=== PATIENT | female | born 1995 | race Caucasian/White ===

== ENCOUNTER → 2018-05-17 | Outpatient (REF) | payer OTHER | LOC: M LAB REF 16:38 | DX: N39.0 Urinary tract infection, site not specified (principal) ==

== ENCOUNTER 2018-05-18 20:48 | Emergency (ER) | payer BC, OTHER ==
[2018-05-18 22:46] LABS: BASO % 0.4 % (0.0-1.0); EOS # 0.1 10^3/uL (0.0-0.50); EOS % 1.7 % (0.0-3.0); HEMATOCRIT 44.3 % (36.0-47.0); HEMOGLOBIN 14.2 g/dl (12.0-15.5); IMMATURE GRANULOCYTE % 0.3 % (0-3.0); LYMPH # 3.4 10^3/uL (1.5-6.5); LYMPH % 42.9 % (24.0-44.0); MEAN CORPUSCULAR HEMOGLOBIN 28.5 pg (27.0-33.0); MEAN CORPUSCULAR HGB CONC 32.1 g/dl (32.0-36.5); MEAN CORPUSCULAR VOLUME 88.8 fl (80.0-96.0); MONO # 0.6 10^3/uL (0.0-0.8); MONO % 7.1 % (0.0-5.0); NEUTROPHILS # 3.7 10^3/uL (1.8-7.7); NEUTROPHILS % 47.6 % (36.0-66.0); PLATELET COUNT, AUTOMATED 271 10^3/uL (150-450); RED BLOOD COUNT 4.99 10^6/uL (4.00-5.40); RED CELL DISTRIBUTION WIDTH 13.1 % (11.5-14.5); WHITE BLOOD COUNT 7.8 10^3/uL (4.0-10.0)
[2018-05-18 22:54] LABS: KETONE, URINE AUTO RFX TRACE mg/dL (NEGATIVE); MUCUS, URINE RFX SMALL (NEGATIVE); NITRITE, URINE AUTO RFX NEGATIVE (NEGATIVE); RBC, URINE AUTO RFX 2 /HPF (0-3); SPECIFIC GRAVITY UR AUTO RFX 1.019 (1.002-1.035); SQUAM EPITHELIAL CELL UR AURFX 5 /HPF (0-6); WBC, URINE AUTO RFX 8 /HPF (0-3)
[2018-05-18 22:55] LABS: CONTROL LINE UCG INT CTR LINE PRESENT; LEUKOCYTE ESTERASE UR AUTO RFX TRACE (NEGATIVE); URINE PREG TEST NEGATIVE (NEGATIVE)
[2018-05-18 23:06] LABS: ALBUMIN 4.2 GM/DL (3.2-5.2); ALBUMIN/GLOBULIN RATIO 1.24 (1.00-1.93); ALKALINE PHOSPHATASE 35 U/L (45-117); ALT/SGPT 21 U/L (12-78); ANION GAP 4 MEQ/L (8-16); AST/SGOT 13 U/L (7-37); BILIRUBIN,DIRECT 0.1 MG/DL (0.0-0.2); BILIRUBIN,TOTAL 0.3 MG/DL (0.2-1.0); BLOOD UREA NITROGEN 8 MG/DL (7-18); CALCIUM LEVEL 9.1 MG/DL (8.5-10.1); CARBON DIOXIDE LEVEL 31 MEQ/L (21-32); CHLORIDE LEVEL 105 MEQ/L (98-107); CREATININE FOR GFR 0.62 MG/DL (0.55-1.30); GLOMERULAR FILTRATION RATE > 60.0 (>60); GLUCOSE, FASTING 87 MG/DL (70-100); LIPASE 116 U/L (73-393); POTASSIUM SERUM 4.3 MEQ/L (3.5-5.1); SODIUM LEVEL 140 MEQ/L (136-145); TOTAL PROTEIN 7.6 GM/DL (6.4-8.2)
[2018-05-18] MEDS: NS 500 ML IV (23:30)
[2018-05-18] MEDS ORDERED: ISOVUE-370 76% 100ML VIAL (Q9967) As Ordered (23:44)
[2018-05-18] MEDS: ONDANSETRON 4MG/2ML VIAL (J2405) IV (23:52)
== END 2018-05-19 01:26 | disposition home or self-care (01) ==
LOC: M ED 05-19 01:26
DX: N39.0 Urinary tract infection, site not specified (principal); R10.9 Unspecified abdominal pain; R11.0 Nausea
CPT/HCPCS: J2405

== ENCOUNTER → 2018-05-18 | Outpatient (REF) | payer OTHER ==
[2018-05-19 11:02] LABS: BACTERIA, URINE AUTO 1+ (NEGATIVE); MUCUS, URINE SMALL (NEGATIVE); RBC, URINE AUTO 1 /HPF (0-3); SQUAMOUS EPITHELIAL CELL UR AU 6 /HPF (0-6); WBC, URINE AUTO 7 /HPF (0-3)
[2018-05-19 12:17] LABS: CHLAMYDIA DNA AMPLIFICATION NEGATIVE (NEGATIVE); GC DNA AMPLIFICATION NEGATIVE (NEGATIVE)
== END ==
LOC: M WUC 10:01
DX: R10.813 Right lower quadrant abdominal tenderness (principal)

== ENCOUNTER → 2018-08-29 | Outpatient (REF) | payer OTHER ==
[2018-08-29 14:15] LABS: AMORPHOUS SEDIMENT SMALL (NEGATIVE); APPEARANCE, URINE CLOUDY (CLEAR); BACTERIA, URINE AUTO 2+ (NEGATIVE); BILIRUBIN, URINE AUTO NEGATIVE (NEGATIVE); BLOOD, URINE BLOOD 3+ (NEGATIVE); CALCIUM OXALATE CRYSTALS LARGE; COLOR, URINE AMBER (YELLOW); GLUCOSE, URINE (UA) AUTO NEGATIVE (NEGATIVE); KETONE, URINE AUTO NEGATIVE (NEGATIVE); LEUKOCYTE ESTERASE, URINE AUTO 3+ (NEGATIVE); MUCUS, URINE LARGE (NEGATIVE); NITRITE, URINE AUTO NEGATIVE (NEGATIVE); PROTEIN, URINE AUTO 2+ mg/dL (NEGATIVE); RBC, URINE AUTO TNTC /HPF (0-3); SPECIFIC GRAVITY URINE AUTO 1.026 (1.002-1.035); SQUAMOUS EPITHELIAL CELL UR AU 28 /HPF (0-6); UROBILINOGEN, URINE AUTO 0.2 mg/dL (0.0-2.0); WBC, URINE AUTO TNTC /HPF (0-3)
== END ==
LOC: M LAB REF 13:40
DX: N39.0 Urinary tract infection, site not specified (principal)
CPT/HCPCS: 81001

== ENCOUNTER → 2018-09-28 | Outpatient (REF) | payer OTHER ==
[~2018-09-28] MED LIST: ZOFR4TAB14 PO
== END ==
LOC: M WUC 10:24
PROVIDERS: ATTEND Physician Assistant
DX: N39.0 Urinary tract infection, site not specified (principal)

== ENCOUNTER → 2019-04-19 | Outpatient (REF) | payer OTHER | LOC: M LAB REF 16:33 | PROVIDERS: ATTEND Physician Assistant | DX: N39.0 Urinary tract infection, site not specified (principal) ==

== ENCOUNTER → 2019-05-16 | Outpatient (REF) | payer OTHER | LOC: M LAB REF 09:57 | PROVIDERS: ATTEND Nurse Practitioner Family | DX: R30.0 Dysuria (principal) ==

== ENCOUNTER → 2019-10-02 | Outpatient (REF) | payer OTHER | LOC: M LAB REF 10:24 | PROVIDERS: ATTEND Physician Assistant | DX: R30.0 Dysuria (principal) ==

== ENCOUNTER → 2019-10-03 | Outpatient (REF) | payer OTHER ==
[2019-10-03 13:16] LABS: APPEARANCE, URINE CLOUDY (CLEAR); BACTERIA, URINE AUTO 1+ (NEGATIVE); BILIRUBIN, URINE AUTO NEGATIVE (NEGATIVE); BLOOD, URINE BLOOD 3+ (NEGATIVE); COLOR, URINE RED (YELLOW); GLUCOSE, URINE (UA) AUTO NEGATIVE (NEGATIVE); KETONE, URINE AUTO NEGATIVE (NEGATIVE); LEUKOCYTE ESTERASE, URINE AUTO 3+ (NEGATIVE); NITRITE, URINE AUTO NEGATIVE (NEGATIVE); PROTEIN, URINE AUTO 1+ mg/dL (NEGATIVE); RBC, URINE AUTO 49 /HPF (0-3); SPECIFIC GRAVITY URINE AUTO 1.003 (1.002-1.035); SQUAMOUS EPITHELIAL CELL UR AU 6 /HPF (0-6); UROBILINOGEN, URINE AUTO 0.2 mg/dL (0.0-2.0); WBC, URINE AUTO TNTC /HPF (0-3)
== END ==
LOC: M LAB REF 11:00
PROVIDERS: ATTEND Physician Assistant
DX: N39.0 Urinary tract infection, site not specified (principal)

== ENCOUNTER → 2019-10-19 | Outpatient (REF) | payer OTHER ==
[2019-10-19 14:30] LABS: APPEARANCE, URINE HAZY (CLEAR); BACTERIA, URINE AUTO 1+ (NEGATIVE); BILIRUBIN, URINE AUTO NEGATIVE (NEGATIVE); BLOOD, URINE BLOOD NEGATIVE (NEGATIVE); COLOR, URINE YELLOW (YELLOW); GLUCOSE, URINE (UA) AUTO NEGATIVE (NEGATIVE); KETONE, URINE AUTO NEGATIVE (NEGATIVE); LEUKOCYTE ESTERASE, URINE AUTO NEGATIVE (NEGATIVE); MUCUS, URINE SMALL (NEGATIVE); NITRITE, URINE AUTO NEGATIVE (NEGATIVE); PROTEIN, URINE AUTO NEGATIVE (NEGATIVE); RBC, URINE AUTO 1 /HPF (0-3); SPECIFIC GRAVITY URINE AUTO 1.012 (1.002-1.035); SQUAMOUS EPITHELIAL CELL UR AU 0 /HPF (0-6); UROBILINOGEN, URINE AUTO 0.2 mg/dL (0.0-2.0); WBC, URINE AUTO 1 /HPF (0-3)
== END ==
LOC: M SMT 13:26
PROVIDERS: ATTEND Nurse Practitioner Women's Health
DX: R30.0 Dysuria (principal)

== ENCOUNTER → 2019-10-26 | Outpatient (CLI) | payer BC, OTHER ==
--- NOTE | 2019-10-26 11:51 | REP ---
Renal ultrasound for frequent urinary tract infections: The right kidney measures 11.6 x 5: By 4.1 cm. The left kidney measures 11.0 x 4.9 x 5.2 cm. The kidneys are normal size. Renal cortical echogenicity is normal bilaterally. There is no hydronephrosis on the right on the left. There are no renal calculi. There are no solid or cystic renal masses. Impression: Negative renal ultrasound. Electronically Signed by Tang Schmitt MD 10/26/2019 11:43 A
--- NOTE | 2019-10-26 11:53 | REP ---
Bladder ultrasound for recurrent urinary tract infections: The distended bladder pre void bladder volume is 465 ml. The postvoid bladder volume is 21 ml. The postvoid residual is 4%. There are no bladder wall polyps or masses. Electronically Signed by Tang Schmitt MD 10/26/2019 11:44 A
== END ==
LOC: M RAD 10:46
PROVIDERS: ATTEND Nurse Practitioner Women's Health
DX: Z87.440 Personal history of urinary (tract) infections (principal)

== ENCOUNTER → 2020-01-25 | Outpatient (REF) | payer OTHER ==
[2020-01-25 17:26] LABS: APPEARANCE, URINE HAZY (CLEAR); BACTERIA, URINE AUTO 1+ (NEGATIVE); BILIRUBIN, URINE AUTO NEGATIVE (NEGATIVE); BLOOD, URINE BLOOD 3+ (NEGATIVE); COLOR, URINE STRAW (YELLOW); GLUCOSE, URINE (UA) AUTO NEGATIVE (NEGATIVE); KETONE, URINE AUTO NEGATIVE (NEGATIVE); LEUKOCYTE ESTERASE, URINE AUTO 3+ (NEGATIVE); MUCUS, URINE SMALL (NEGATIVE); NITRITE, URINE AUTO NEGATIVE (NEGATIVE); PROTEIN, URINE AUTO NEGATIVE (NEGATIVE); RBC, URINE AUTO 2 /HPF (0-3); SPECIFIC GRAVITY URINE AUTO 1.002 (1.002-1.035); SQUAMOUS EPITHELIAL CELL UR AU 3 /HPF (0-6); UROBILINOGEN, URINE AUTO 0.2 mg/dL (0.0-2.0); WBC, URINE AUTO 43 /HPF (0-3)
== END ==
LOC: M SMT 16:31
PROVIDERS: ATTEND Nurse Practitioner Women's Health
DX: R30.0 Dysuria (principal)

== ENCOUNTER → 2020-09-12 | Outpatient (CLI) | payer BC ==
[2020-09-12 12:12] LABS: BASO % 0.7 % (0.0-1.0); EOS # 0.2 10^3/uL (0.0-0.5); EOS % 3.6 % (0.0-3.0); HEMOGLOBIN 13.5 g/dl (12.0-15.5); LYMPH # 2.1 10^3/uL (1.5-5.0); LYMPH % 47.1 % (24.0-44.0); MEAN CORPUSCULAR HEMOGLOBIN 28.3 pg (27.0-33.0); MEAN CORPUSCULAR HGB CONC 32.1 g/dl (32.0-36.5); MEAN CORPUSCULAR VOLUME 88.1 fl (80.0-96.0); MONO # 0.3 10^3/uL (0.0-0.8); MONO % 5.9 % (0.0-5.0); NEUTROPHILS # 1.9 10^3/uL (1.5-8.5); NEUTROPHILS % 42.7 % (36.0-66.0); PLATELET COUNT, AUTOMATED 283 10^3/uL (150-450); RED BLOOD COUNT 4.77 10^6/uL (4.00-5.40); WHITE BLOOD COUNT 4.4 10^3/uL (4.0-10.0)
[2020-09-12 12:46] LABS: ALBUMIN 4.3 GM/DL (3.2-5.2); ALT/SGPT 20 U/L (12-78); BILIRUBIN,TOTAL 0.5 MG/DL (0.2-1.0); BLOOD UREA NITROGEN 8 MG/DL (7-18); CALCIUM LEVEL 8.8 MG/DL (8.5-10.1); CARBON DIOXIDE LEVEL 29 MEQ/L (21-32); CHLORIDE LEVEL 105 MEQ/L (98-107); CHOLESTEROL LEVEL 186 MG/DL (<200); CHOLESTEROL RISK RATIO 2.325 (<5); CREATININE FOR GFR 0.67 MG/DL (0.55-1.30); GLOMERULAR FILTRATION RATE > 60.0 (>60); GLUCOSE, FASTING 92 MG/DL (70-100); HDL CHOLESTEROL 80 MG/DL (>40); LDL CHOLESTEROL 91 MG/DL (<100); NON-HDL-C 106 MG/DL; POTASSIUM SERUM 3.7 MEQ/L (3.5-5.1); SODIUM LEVEL 139 MEQ/L (136-145); TOTAL PROTEIN 7.2 GM/DL (6.4-8.2); TRIGLYCERIDES LEVEL 75 MG/DL (<150)
[2020-09-12 12:51] LABS: TOTAL 25(OH) VITAMIN D 23.1 NG/ML (30.0-100.0)
== END ==
LOC: M WUC 09:21
PROVIDERS: ATTEND Physician Assistant
DX: Z00.00 Encounter for general adult medical examination without abnormal findings (principal); Z86.2 Personal history of diseases of the blood and blood-forming organs and certain disorders involving the immune mechanism; Z13.220 Encounter for screening for lipoid disorders; Z13.29 Encounter for screening for other suspected endocrine disorder

== ENCOUNTER → 2020-09-29 | Outpatient (REF) | payer BC | LOC: M SFHCPLAZ 13:09 | PROVIDERS: ATTEND Physician Assistant | DX: R35.0 Frequency of micturition (principal) ==

== ENCOUNTER 2021-05-13 16:44 | Emergency (ER) | payer BC ==
[~2021-05-13] VITALS: Ht 160 cm; Wt 63.6 kg
[2021-05-13] MEDS ORDERED: GI COCKTAIL 50ML BTL(HYOSCYAMINE/MAALOX/LIDOCAINE VISCOUS)(1:3:1) PO ONE (21:00)
[2021-05-13 21:31] LABS: BASO % 0.4 % (0.0-1.0); EOS % 0.8 % (0.0-3.0); HEMATOCRIT 41.4 % (36.0-47.0); HEMOGLOBIN 13.1 g/dl (12.0-15.5); LYMPH # 1.2 10^3/uL (1.5-5.0); LYMPH % 22.8 % (24.0-44.0); MEAN CORPUSCULAR HEMOGLOBIN 27.5 pg (27.0-33.0); MEAN CORPUSCULAR HGB CONC 31.6 g/dl (32.0-36.5); MONO # 0.3 10^3/uL (0.0-0.8); MONO % 6.7 % (2.0-8.0); NEUTROPHILS # 3.5 10^3/uL (1.5-8.5); NEUTROPHILS % 69.1 % (36.0-66.0); PLATELET COUNT, AUTOMATED 250 10^3/uL (150-450); RED BLOOD COUNT 4.76 10^6/uL (4.00-5.40); WHITE BLOOD COUNT 5.1 10^3/uL (4.0-10.0)
[2021-05-13 21:59] LABS: ERYTHROCYTE SEDIMENTATION RATE 4 mm/hr (0-20)
[2021-05-13 22:07] LABS: ALBUMIN 4.2 GM/DL (3.2-5.2); ALT/SGPT 25 U/L (12-78); BILIRUBIN,DIRECT 0.1 MG/DL (0.0-0.2); BILIRUBIN,TOTAL 0.4 MG/DL (0.2-1.0); BLOOD UREA NITROGEN 8 MG/DL (7-18); C REACTIVE PROTEIN QUANTITATIV 0.46 MG/DL (0.00-0.30); CALCIUM LEVEL 8.9 MG/DL (8.5-10.1); CARBON DIOXIDE LEVEL 28 MEQ/L (21-32); CHLORIDE LEVEL 105 MEQ/L (98-107); CK-MB VALUE MASS < 1.0 NG/ML (<3.6); CPK CREATINE PHOSPHOKINASE 106 U/L (26-192); CREATININE FOR GFR 0.67 MG/DL (0.55-1.30); FREE T4 0.92 NG/DL (0.76-1.46); GLOMERULAR FILTRATION RATE > 60.0 (>60); GLUCOSE, FASTING 87 MG/DL (70-100); LIPASE 104 U/L (73-393); MB/CK RELATIVE INDEX 0.94 (< OR =4); NT-PRO BNP 74 PG/ML (<125); POTASSIUM SERUM 4.1 MEQ/L (3.5-5.1); SODIUM LEVEL 140 MEQ/L (136-145); TOTAL PROTEIN 7.1 GM/DL (6.4-8.2); TROPONIN I < 0.02 NG/ML (< 0.10)
--- NOTE | 2021-05-13 22:51 | REPVR ---
PROCEDURE INFORMATION: Exam: XR Chest Exam date and time: 05/13/2021 10:20 PM Age: 26 years old Clinical indication: Other: Chest pain TECHNIQUE: Imaging protocol: XR of the chest. Views: 1 view. COMPARISON: CT ABD/PEL W/IV CONTRAST ONLY 05/18/2018 11:54 PM FINDINGS: Lungs: Unremarkable. No consolidation. Pleural spaces: Unremarkable. No pleural effusion. No pneumothorax. Heart/Mediastinum: Unremarkable. No cardiomegaly. Bones/joints: Unremarkable. IMPRESSION: Negative chest. Electronically signed by: Elton Guzman On 05/13/2021 22:50:58 PM
[2021-05-13 23:44] VITALS: BP 134/67
--- NOTE | 2021-05-15 06:36 | ECGEPIP ---
[facility] - ED Test Date: 2021-05-13 Pat Name: MICHAEL ACEVEDO Department: Room: - Gender: Female [employer] Electrical Engineer: EMILY : [id number] Requested By: BELGICA South PA-C Order Number: [id number] Reading MD: Abimbola Goldsmith Measurements Intervals [place] Rate: 81 P: 17 DE: 108 QRS: 66 QRSD: 76 T: 58 QT: 384 QTc: 446 Interpretive Statements Sinus rhythm with sinus arrhythmia with short DE Nonspecific ST T wave changes No prior ECG for comparison Electronically Signed on 05-15-2021 6:36:03 EDT by Abimbola Goldsmith
== END 2021-05-13 23:47 | disposition home or self-care (01) ==
LOC: M ED 16:44
DX: R07.9 Chest pain, unspecified (principal); T50.B95A Adverse effect of other viral vaccines, initial encounter; J45.990 Exercise induced bronchospasm; Z88.2 Allergy status to sulfonamides; Z91.040 Latex allergy status

== ENCOUNTER → 2021-06-05 | Outpatient (CLI) | payer BC ==
--- NOTE | 2021-06-05 13:46 | REP ---
INDICATION: LOCALIZED SWELLING MASS AND LUMP NECK. COMPARISON: None. TECHNIQUE: Real-time sonographic evaluation of the bilateral neck soft tissues performed, for bilateral palpable lumps. FINDINGS: In the right neck soft tissues there is a nonenlarged lymph node which measures 9 x 3 x 8 mm. In the lateral left neck soft tissues there is a nonenlarged lymph node which measures 10 x 5 x 9 mm. IMPRESSION: A nonenlarged lymph node is seen in the right neck soft tissues and another in the left neck soft tissues. <Electronically signed by Tang Kaur > 06/05/21 [id number]
== END ==
LOC: M WHC 09:36
PROVIDERS: ATTEND Physician Assistant
DX: R22.1 Localized swelling, mass and lump, neck (principal)

== ENCOUNTER → 2022-12-24 | Outpatient (REF) | payer BC | LOC: M SFHCPLAZ 10:01 | PROVIDERS: ATTEND Advanced Practice Midwife | DX: Z12.4 Encounter for screening for malignant neoplasm of cervix (principal) ==

== ENCOUNTER → 2023-05-06 | Outpatient (CLI) | payer BC ==
[2023-05-06 14:11] LABS: HEMATOCRIT 41.9 % (36.0-47.0); HEMOGLOBIN 13.2 g/dl (12.0-15.5); MEAN CORPUSCULAR HEMOGLOBIN 28.1 pg (27.0-33.0); MEAN CORPUSCULAR HGB CONC 31.5 g/dl (32.0-36.5); MEAN CORPUSCULAR VOLUME 89.1 fl (80.0-96.0); PLATELET COUNT, AUTOMATED 225 10^3/uL (150-450); WHITE BLOOD COUNT 6.8 10^3/uL (4.0-10.0)
[2023-05-06 14:57] LABS: HIV 1&2 SCREEN NEGATIVE (NEGATIVE)
[2023-05-06 15:05] LABS: HEPATITIS C VIRUS ABY INDEX 0.13 INDEX (<0.8)
[2023-05-07 12:44] LABS: GC DNA AMPLIFICATION NEGATIVE (NEGATIVE)
== END ==
LOC: M PLALAB 10:37
PROVIDERS: ATTEND Obstetrics & Gynecology
DX: O30.001 Twin pregnancy, unspecified number of placenta and unspecified number of amniotic sacs, first trimester (principal)

== ENCOUNTER → 2023-05-13 | Outpatient (CLI) | payer BC, MEDICAID | LOC: M WHC 10:19 | PROVIDERS: ATTEND Obstetrics & Gynecology | DX: O30.001 Twin pregnancy, unspecified number of placenta and unspecified number of amniotic sacs, first trimester (principal) ==

== ENCOUNTER → 2023-07-01 | Outpatient (CLI) | payer BC, MEDICAID | LOC: M WHC 09:27 | PROVIDERS: ATTEND Obstetrics & Gynecology | DX: O30.032 Twin pregnancy, monochorionic/diamniotic, second trimester (principal); Z3A.19 19 weeks gestation of pregnancy ==

== ENCOUNTER → 2023-07-21 | Outpatient (CLI) | payer BC, MEDICAID | LOC: M WHC 14:02 | PROVIDERS: ATTEND Specialist | DX: O30.032 Twin pregnancy, monochorionic/diamniotic, second trimester (principal); Z3A.22 22 weeks gestation of pregnancy ==

== ENCOUNTER → 2023-08-08 | Outpatient (CLI) | payer BC, MEDICAID ==
[2023-08-08 13:48] LABS: HEMATOCRIT 31.6 % (36.0-47.0); HEMOGLOBIN 9.8 g/dl (12.0-15.5); MEAN CORPUSCULAR HEMOGLOBIN 26.7 pg (27.0-33.0); MEAN CORPUSCULAR VOLUME 86.1 fl (80.0-96.0); PLATELET COUNT, AUTOMATED 328 10^3/uL (150-450); RED BLOOD COUNT 3.67 10^6/uL (4.00-5.40); WHITE BLOOD COUNT 10.7 10^3/uL (4.0-10.0)
[2023-08-08 15:26] LABS: CHLAMYDIA DNA AMPLIFICATION NEGATIVE (NEGATIVE); GC DNA AMPLIFICATION NEGATIVE (NEGATIVE)
== END ==
LOC: M PLALAB 10:47
PROVIDERS: ATTEND Obstetrics & Gynecology
DX: O30.032 Twin pregnancy, monochorionic/diamniotic, second trimester (principal)

== ENCOUNTER → 2023-08-10 | Outpatient (CLI) | payer BC, MEDICAID | LOC: M WHC 13:42 | PROVIDERS: ATTEND Obstetrics & Gynecology | DX: O30.032 Twin pregnancy, monochorionic/diamniotic, second trimester (principal) ==

== ENCOUNTER 2023-08-29 14:34 | Outpatient (CLI) | payer BC, MEDICAID ==
[~2023-08-29] VITALS: Ht 160 cm; Wt 83.4 kg
[2023-08-29] MEDS ORDERED: IRON27TA2 PO (14:47)
[2023-08-29] MEDS ORDERED: PRENTAB9 PO (14:47)
[2023-08-29] MEDS ORDERED: FOLI800C PO (14:47)
[2023-08-29 14:49] VITALS: BP 135/75
[2023-08-29] MEDS ORDERED: HOME MED LIST COMPLETE! XX SCH (14:50)
[2023-08-29 16:54] VITALS: BP 129/76
[2023-08-29 16:54] LABS: HEMATOCRIT 32.3 % (36.0-47.0); HEMOGLOBIN 10.1 g/dl (12.0-15.5); MEAN CORPUSCULAR HEMOGLOBIN 26.4 pg (27.0-33.0); MEAN CORPUSCULAR HGB CONC 31.3 g/dl (32.0-36.5); MEAN CORPUSCULAR VOLUME 84.6 fl (80.0-96.0); PLATELET COUNT, AUTOMATED 309 10^3/uL (150-450); RED BLOOD COUNT 3.82 10^6/uL (4.00-5.40); WHITE BLOOD COUNT 9.7 10^3/uL (4.0-10.0)
[2023-08-29] MEDS ORDERED: DOCU-153 PO (17:14)
[2023-08-29] MEDS ORDERED: FERR324T21 PO (17:14)
[2023-08-29 18:26] LABS: ALBUMIN 2.6 G/DL (3.2-5.2); ALKALINE PHOSPHATASE 97 U/L (46-116); ALT/SGPT 14 U/L (7.0-40); AST/SGOT 15 U/L (<34); BILIRUBIN,TOTAL 0.2 MG/DL (0.3-1.2); BLOOD UREA NITROGEN 6 MG/DL (9-23); CARBON DIOXIDE LEVEL 23 MMOL/L (20-31); CHLORIDE LEVEL 107 MMOL/L (98-107); CREATININE FOR GFR 0.36 MG/DL (0.55-1.30); GLOMERULAR FILTRATION RATE > 60.0 (>60); GLUCOSE, FASTING 107 MG/DL (60-100); POTASSIUM SERUM 4.2 MMOL/L (3.5-5.1); SODIUM LEVEL 138 MMOL/L (136-145); TOTAL PROTEIN 5.8 G/DL (5.7-8.2)
== END 2023-08-29 17:45 | disposition home or self-care (01) ==
LOC: M LDO 14:34
PROVIDERS: ATTEND Advanced Practice Midwife
DX: O26.892 Other specified pregnancy related conditions, second trimester (principal); R42 Dizziness and giddiness; R51.9 Headache, unspecified; O30.032 Twin pregnancy, monochorionic/diamniotic, second trimester; O36.5921 Maternal care for other known or suspected poor fetal growth, second trimester, fetus 1; O99.012 Anemia complicating pregnancy, second trimester; D50.9 Iron deficiency anemia, unspecified; Z3A.27 27 weeks gestation of pregnancy
CPT/HCPCS: 36415; 59025; 76812; 76816; 76819; 76820; 76821; 80053; 85027; G0463

== ENCOUNTER 2023-09-01 09:39 | Outpatient (CLI) | payer BC, MEDICAID ==
[~2023-09-01] VITALS: Ht 162.6 cm; Wt 82.0 kg
[~2023-09-01 09:39] MED LIST changes: +DOCU-153 PO; +FERR324T21 PO; +FOLI800C PO; +IRON27TA2 PO; +PRENTAB9 PO
[2023-09-01] MEDS ORDERED: IRON SUCROSE 500 MG in NS 250 ML OVER 4 HRS IV ONE (10:00)
[2023-09-01 10:06] VITALS: BP 126/78; O2SAT 99
[2023-09-01 11:30] VITALS: BP 136/77; O2SAT 98
[2023-09-01 13:00] VITALS: BP 136/82; O2SAT 97
[2023-09-01 14:30] VITALS: BP 121/66; O2SAT 97
== END 2023-09-01 15:00 | disposition home or self-care (01) ==
LOC: M INFU 09:39
PROVIDERS: ATTEND Specialist
DX: D64.9 Anemia, unspecified (principal); Z88.2 Allergy status to sulfonamides
CPT/HCPCS: 96365; 96366; J1756

== ENCOUNTER → 2023-09-14 | Outpatient (CLI) | payer BC, MEDICAID | LOC: M WHC 07:24 | PROVIDERS: ATTEND Obstetrics & Gynecology | DX: O30.033 Twin pregnancy, monochorionic/diamniotic, third trimester (principal) ==

== ENCOUNTER 2023-09-23 16:55 | Outpatient (CLI) | payer BC, MEDICAID ==
[~2023-09-23] VITALS: Ht 160 cm; Wt 87.2 kg
[2023-09-23 17:31] VITALS: BP 142/76
[2023-09-23] MEDS ORDERED: IRON325T2 PO (17:34)
[2023-09-23] MEDS ORDERED: HOME MED LIST COMPLETE! XX SCH (17:35)
[2023-09-23 17:50] VITALS: BP 139/75
[2023-09-23 20:33] VITALS: BP 124/73
== END 2023-09-23 21:20 | disposition home or self-care (01) ==
LOC: M LDO 16:55
PROVIDERS: ATTEND Advanced Practice Midwife
DX: O30.033 Twin pregnancy, monochorionic/diamniotic, third trimester (principal); Z04.1 Encounter for examination and observation following transport accident; Y92.9 Unspecified place or not applicable; Y93.9 Activity, unspecified; Y99.9 Unspecified external cause status; Z3A.31 31 weeks gestation of pregnancy; Z88.2 Allergy status to sulfonamides; Z91.040 Latex allergy status
CPT/HCPCS: 59025; 76815; 76819; 76820; G0463

== ENCOUNTER → 2023-10-05 | Outpatient (CLI) | payer BC, MEDICAID ==
[~2023-10-05] MED LIST changes: +IRON325T2 PO
== END ==
LOC: M WHC 09:31
PROVIDERS: ATTEND Obstetrics & Gynecology
DX: O30.033 Twin pregnancy, monochorionic/diamniotic, third trimester (principal)

== ENCOUNTER → 2023-10-12 | Outpatient (CLI) | payer BC, MEDICAID | LOC: M WHC 09:34 | PROVIDERS: ATTEND Advanced Practice Midwife | DX: O30.033 Twin pregnancy, monochorionic/diamniotic, third trimester (principal); O32.1XX1 Maternal care for breech presentation, fetus 1; O32.1XX2 Maternal care for breech presentation, fetus 2 ==

== ENCOUNTER → 2023-10-12 | Outpatient (CLI) | payer BC, MEDICAID | LOC: M WHC 09:33 | PROVIDERS: ATTEND Obstetrics & Gynecology | DX: O30.033 Twin pregnancy, monochorionic/diamniotic, third trimester (principal); Z3A.32 32 weeks gestation of pregnancy; O32.1XX1 Maternal care for breech presentation, fetus 1; O32.2XX0 Maternal care for transverse and oblique lie, not applicable or unspecified ==

== ENCOUNTER → 2023-10-19 | Outpatient (CLI) | payer BC, MEDICAID | LOC: M WHC 09:46 | PROVIDERS: ATTEND Obstetrics & Gynecology | DX: O30.033 Twin pregnancy, monochorionic/diamniotic, third trimester (principal) ==

== ENCOUNTER → 2023-10-26 | Outpatient (REF) | payer BC, MEDICAID | LOC: M SFHCWAGY 17:04 | PROVIDERS: ATTEND Obstetrics & Gynecology | DX: O30.033 Twin pregnancy, monochorionic/diamniotic, third trimester (principal) ==

== ENCOUNTER → 2023-10-27 | Outpatient (CLI) | payer BC, MEDICAID | LOC: M WHC 08:33 | PROVIDERS: ATTEND Obstetrics & Gynecology | DX: O30.039 Twin pregnancy, monochorionic/diamniotic, unspecified trimester (principal) ==

== ENCOUNTER 2023-11-04 05:42 | Inpatient (IN) | payer BC, MEDICAID ==
[2023-11-04] VITALS (12 sets, daily range): BP systolic 112–141; BP diastolic 55–83; TEMP 97.8; O2SAT 97–100
[~2023-11-04] VITALS: Ht 160 cm; Wt 90.5 kg
[~2023-11-04 05:42] MED LIST changes: -DOCU-153 PO; +STOO100C30 PO
[2023-11-04] MEDS ORDERED: HOME MED LIST COMPLETE! XX SCH (06:15)
[2023-11-04] MEDS: LACTATED RINGER'S 1000 ML IV STA (06:29)
[2023-11-04 06:44] LABS: HEMATOCRIT 39.6 % (36.0-47.0); HEMOGLOBIN 12.7 g/dl (12.0-15.5); MEAN CORPUSCULAR HEMOGLOBIN 26.6 pg (27.0-33.0); MEAN CORPUSCULAR HGB CONC 32.1 g/dl (32.0-36.5); PLATELET COUNT, AUTOMATED 248 10^3/uL (150-450); RED BLOOD COUNT 4.77 10^6/uL (4.00-5.40)
[2023-11-04] MEDS ORDERED: FERR325T82 PO (07:11)
[2023-11-04] MEDS: BICITRA 30ML SOLN UDC PO ONE (07:20)
[2023-11-04] MEDS: ceFAZolin SOD 2 GM in IV 1 EA IV ONE (07:21)
[2023-11-04] MEDS: LR 1,000 ML IV SCH (07:21)
[2023-11-04] MEDS ORDERED: OXYTOCIN 30UNITS IN 0.9% NaCl 500ML IV BAG As Ordered ONE (07:26)
[2023-11-04] MEDS ORDERED: ePHEDrine SULFATE 25 MG/5 ML(5MG/ML) SYRINGE As Ordered ONE (07:34)
[2023-11-04] MEDS ORDERED: KETOROLAC 60MG 2ML VIAL As Ordered ONE (07:35)
[2023-11-04] MEDS ORDERED: ONDANSETRON 4MG 2ML VIAL As Ordered ONE (07:35)
[2023-11-04] MEDS ORDERED: METOCLOPRAMIDE INJ 10MG/2ML VIAL As Ordered ONE (07:35)
[2023-11-04] MEDS ORDERED: PHENYLephrine 500MCG 5ML (100MCG/ML) SYRINGE As Ordered ONE (07:56)
[2023-11-04] MEDS ORDERED: MORPHINE PRES-FREE INJ 10 MG/10 ML VIAL As Ordered ONE (08:10)
[2023-11-04] MEDS ORDERED: METHYLERGONOVINE MALEATE 0.2MG/ML 1ML VIAL IM PRN (08:50)
[2023-11-04] MEDS ORDERED: LR 1,000 ML IV SCH (08:50)
[2023-11-04] MEDS ORDERED: ANUSOL HC CREAM 30GM TOP PRN (08:50)
[2023-11-04] MEDS ORDERED: RHOGAM 300MCG (1500IU) INJ IM SCH (08:50)
[2023-11-04] MEDS ORDERED: SIMETHICONE 80MG CHEW TAB PO PRN (08:50)
[2023-11-04] MEDS ORDERED: MORPHINE 4 MG/ML 1ML VIAL IV PRN (08:50)
[2023-11-04] MEDS ORDERED: diphenhydrAMINE 50MG/ML VIAL IV PRN (08:55)
[2023-11-04] MEDS ORDERED: METOCLOPRAMIDE INJ 10MG/2ML VIAL IV PRN (08:55)
[2023-11-04] MEDS ORDERED: **NOTE PATIENT COMMENT** MISC XX SCH (08:55)
[2023-11-04] MEDS ORDERED: fentaNYL 100 MCG/2 ML INJECTION IV PRN (08:55)
[2023-11-04] MEDS ORDERED: NALOXONE INJ 0.4MG/1ML VIAL IV PRN ×2 (08:55)
[2023-11-04] MEDS: SLF 3 ML SYR IV SCH (08:55)
[2023-11-04] MEDS ORDERED: ONDANSETRON 4MG 2ML VIAL IV PRN (08:55)
[2023-11-04] MEDS ORDERED: COLA100C5 PO (08:58)
[2023-11-04] MEDS ORDERED: IBUP80TA PO (08:58)
[2023-11-04] MEDS ORDERED: PERCOCET PO (08:58)
[2023-11-04] MEDS: OXYTOCIN DRIP 30 UNITS in IV 1 EA IV SCH (09:07)
[2023-11-04] MEDS: DOCUSATE SODIUM 100MG CAPSULE PO SCH (13:45)
[2023-11-04] MEDS: KETOROLAC 30 MG/ML 1ML VIAL IV SCH (13:54)
[2023-11-05] MEDS: ACETAMINOPHEN 500 MG TAB PO PRN (00:29)
[2023-11-05 02:00] VITALS: BP 113/60; O2SAT 97
[2023-11-05 06:00] VITALS: BP 116/63; O2SAT 96
[2023-11-05 06:54] LABS: HEMATOCRIT 33.4 % (36.0-47.0); MEAN CORPUSCULAR HEMOGLOBIN 26.6 pg (27.0-33.0); MEAN CORPUSCULAR VOLUME 82.9 fl (80.0-96.0); PLATELET COUNT, AUTOMATED 193 10^3/uL (150-450); RED BLOOD COUNT 4.03 10^6/uL (4.00-5.40); WHITE BLOOD COUNT 9.4 10^3/uL (4.0-10.0)
[2023-11-05 06:55] LABS: HEMOGLOBIN 10.7 g/dl (12.0-15.5)
[2023-11-05] MEDS: PRENATAL VITAMINS CHEWABLE TABLET PO SCH (09:12)
[2023-11-05 10:00] VITALS: BP 117/75; O2SAT 99
[2023-11-05] MEDS: IBUPROFEN 800 MG TAB PO SCH (11:17)
[2023-11-05] MEDS: PERCOCET 5MG/325MG TAB PO PRN ×2 (13:16→20:08)
[2023-11-05 14:00] VITALS: BP 121/65; O2SAT 97
[2023-11-05 18:00] VITALS: BP 122/59; O2SAT 96
[2023-11-05 22:00] VITALS: BP 123/74; O2SAT 98
[2023-11-06 02:00] VITALS: BP 124/74; O2SAT 97
[2023-11-06 06:00] VITALS: BP 126/77; O2SAT 98
[2023-11-06] MEDS: MEASLES,MUMPS,RUBELLA VACCINE INJ (MMR-II) SC.IMMUN ONE (09:00)
== END 2023-11-06 17:21 | disposition home or self-care (01) | DRG 540 ==
LOC: M LDI 05:42 → M OBS 11:05
PROVIDERS: ADMIT Obstetrics & Gynecology; ATTEND Obstetrics & Gynecology
PROC: 10D00Z1 Extraction of Products of Conception, Low, Open Approach (ICD-10-PCS; principal; 2023-11-04 07:30)
DX: O32.1XX2 Maternal care for breech presentation, fetus 2 (principal); Z37.2 Twins, both liveborn; Z3A.37 37 weeks gestation of pregnancy; O30.033 Twin pregnancy, monochorionic/diamniotic, third trimester

== ENCOUNTER → 2024-06-01 | Outpatient (CLI) | payer BC, MEDICAID ==
[~2024-06-01] MED LIST changes: +COLA100C5 PO; +FERR325T82 PO; +IBUP80TA PO; +PERCOCET PO
[2024-06-01 14:36] LABS: BASO % 0.7 % (0.0-1.0); EOS # 0.1 10^3/uL (0.0-0.5); EOS % 2.5 % (0.0-3.0); HEMATOCRIT 42.7 % (36.0-47.0); HEMOGLOBIN 13.8 g/dl (12.0-15.5); LYMPH # 1.9 10^3/uL (1.5-5.0); LYMPH % 44.2 % (24.0-44.0); MEAN CORPUSCULAR HEMOGLOBIN 29.5 pg (27.0-33.0); MEAN CORPUSCULAR HGB CONC 32.3 g/dl (32.0-36.5); MEAN CORPUSCULAR VOLUME 91.2 fl (80.0-96.0); MONO # 0.4 10^3/uL (0.0-0.8); MONO % 8.7 % (2.0-8.0); NEUTROPHILS # 1.9 10^3/uL (1.5-8.5); NEUTROPHILS % 43.7 % (36.0-66.0); PLATELET COUNT, AUTOMATED 301 10^3/uL (150-450); RED BLOOD COUNT 4.68 10^6/uL (4.00-5.40); WHITE BLOOD COUNT 4.4 10^3/uL (4.0-10.0)
[2024-06-01 14:46] LABS: ALBUMIN 4.5 G/DL (3.2-5.2); ALKALINE PHOSPHATASE 48 U/L (46-116); ALT/SGPT 21 U/L (7.0-40); AST/SGOT 15 U/L (<34); BILIRUBIN,TOTAL 0.5 MG/DL (0.3-1.2); BLOOD UREA NITROGEN 9 MG/DL (9-23); CALCIUM LEVEL 9.7 MG/DL (8.5-10.1); CARBON DIOXIDE LEVEL 31 MMOL/L (20-31); CHLORIDE LEVEL 105 MMOL/L (98-107); CREATININE FOR GFR 0.65 MG/DL (0.55-1.30); GLOMERULAR FILTRATION RATE > 60.0 (>60); GLUCOSE, FASTING 72 MG/DL (60-100); IRON (FE) 74 UG/DL (50-170); POTASSIUM SERUM 4.7 MMOL/L (3.5-5.1); SODIUM LEVEL 139 MMOL/L (136-145); TOTAL PROTEIN 7.1 G/DL (5.7-8.2)
[2024-06-01 14:47] LABS: PERCENT SATURATION 23.4 % (13.2-45.0); TOTAL IRON BINDING CAPACITY 316 UG/DL (250-425)
[2024-06-01 14:52] LABS: FERRITIN 62.3 NG/ML (7.3-270.7)
[2024-06-01 14:54] LABS: TOTAL 25(OH) VITAMIN D 30.7 NG/ML (20.0-100.0)
[2024-06-01 14:56] LABS: VITAMIN B12 LEVEL 685 PG/ML (211-911)
== END ==
LOC: M PLALAB 09:58
PROVIDERS: ATTEND Physician Assistant
DX: Z00.00 Encounter for general adult medical examination without abnormal findings (principal); E55.9 Vitamin D deficiency, unspecified; D50.9 Iron deficiency anemia, unspecified

== ENCOUNTER → 2024-10-17 | Outpatient (REF) | payer BC, MEDICAID | LOC: M SFHCWAGY 13:26 | PROVIDERS: ATTEND Obstetrics & Gynecology | DX: Z12.4 Encounter for screening for malignant neoplasm of cervix (principal) ==

== ENCOUNTER → 2024-12-04 | Outpatient (CLI) | payer OTHER | LOC: M WHC 14:11 | PROVIDERS: ATTEND Obstetrics & Gynecology | DX: N93.9 Abnormal uterine and vaginal bleeding, unspecified (principal) ==

== ENCOUNTER → 2025-06-24 | Outpatient (CLI) | payer OTHER ==
[2025-06-24 11:06] LABS: PLATELET COUNT, AUTOMATED 257 10^3/uL (150-450)
[2025-06-24 11:25] LABS: ESTIMATED AVERAGE GLUCOSE 103.0 MG/DL (60-110)
[2025-06-24 11:38] LABS: CHOLESTEROL LEVEL 162.0 MG/DL (<200); CHOLESTEROL RISK RATIO 2.47 (<5); IRON (FE) 99.0 UG/DL (50-170); LDL CHOLESTEROL 85.6 MG/DL (<100); NON-HDL-C 96.6 MG/DL; PERCENT SATURATION 30.4 % (13.2-45.0); TRIGLYCERIDES LEVEL 55.0 MG/DL (<150)
[2025-06-24 11:39] LABS: TOTAL 25(OH) VITAMIN D 28.6 NG/ML (20.0-100.0)
[2025-06-24 11:40] LABS: FREE T4 1.13 NG/DL (0.89-1.76)
== END ==
LOC: M PLALAB 09:00
PROVIDERS: ATTEND Nurse Practitioner Family
DX: D50.9 Iron deficiency anemia, unspecified (principal); E55.9 Vitamin D deficiency, unspecified; Z13.29 Encounter for screening for other suspected endocrine disorder; Z13.220 Encounter for screening for lipoid disorders; Z13.1 Encounter for screening for diabetes mellitus